=== PATIENT | male | born 1970 | race Caucasian/White ===

== ENCOUNTER 2024-07-02 09:25 | Emergency (ER) | payer OTHER ==
[~2024-07-02] VITALS: Ht 167.6 cm; Wt 64.0 kg
[2024-07-02 09:45] VITALS: TEMP 98.4
[2024-07-02] MEDS: PredniSONE 20 MG TABLET PO ONE (10:45)
[2024-07-02] MEDS: DiphenhydrAMINE HCL 25 MG CAPSULE PO ONE (10:45)
[2024-07-02 12:00] VITALS: BP 139/80; PULSE 69; RESP 16; O2SAT 100
[2024-07-02] MEDS: PERMETHRIN 5% 60 GM CREAM TP ONE (12:04)
== END 2024-07-02 12:12 | disposition home or self-care (01) ==
LOC: EMS 09:32
DX: R21 Rash and other nonspecific skin eruption (principal)
CPT/HCPCS: 99284; J7512

== ENCOUNTER 2024-07-05 10:07 | Emergency (ER) | payer OTHER ==
[~2024-07-05] VITALS: Ht 167.6 cm; Wt 63.6 kg
[2024-07-05 10:14] VITALS: BP 110/77; PULSE 85; RESP 18; TEMP 98.6; O2SAT 100
[2024-07-05] MEDS ORDERED: PERM60CR4 TP (12:13)
[2024-07-05] MEDS ORDERED: DIPH50CA37 PO (12:13)
[2024-07-05] MEDS ORDERED: HYDR30CR3 TP (12:13)
== END 2024-07-05 12:41 | disposition home or self-care (01) ==
LOC: EMS 10:07
DX: R21 Rash and other nonspecific skin eruption (principal); Z59.01 Sheltered homelessness
CPT/HCPCS: 99282; Z7502